=== PATIENT | male | born 1960 | race American Indian/Alaskan Native ===

== ENCOUNTER 2018-12-14 13:55 | Emergency (ER) | payer OTHER ==
[~2018-12-14] VITALS: Ht 172.7 cm; Wt 52.2 kg
[~2018-12-14 13:55] MED LIST: ALBU.083IS IH; ASPI325EC PO; ASPI81CH PO; AZIT500 PO; Acetaminophen325 M1 PO; Ativan1 MG PO; Augmentin 875-1 EACH PO; BUDE10.22 INH; CARV3.125 PO; CLOP75 PO; CODBUTACEC; FLUSAL2505 IH; GUAI600T33 PO; HYDACE10B; Imitrex100 MG PO; LEVFLO500 PO; LEVO750 PO; LORA.5 PO; LORA2 PO; LOSA25 PO; Mucinex600 MG PO; OXYACE5T PO; OXYC10TA19 PO; OXYC15ER PO; OXYC30 PO; OXYCODONE HCL E30 MG PO; PARO12.5; PARO12.5 PO; PRAVASTATIN SOD10 MG PO; PRED10 PO; PRED20 PO; PROM25 PO; Prednisone20 MG PO; ROFL500T PO; Symbicort 80-10.2 GM INH; TIOT18 IH; TIOT18 INH; TIZA4; TORSE20 PO; TRAM50; TRAZ100 PO; TRAZ50 PO; Ventolin Soln3 ML INH; ZYDONE
[2018-12-14] MEDS ORDERED: BUDE6HFA INH (14:09)
[2018-12-14] MEDS ORDERED: PROM25 PO (14:09)
[2018-12-14] MEDS ORDERED: Imitrex100 MG PO (14:09)
[2018-12-14 14:49] LABS: BASOPHILS ABSOLUTE AUTO 0.11 K/mm3 (0.00-0.23); BASOPHILS PERCENT AUTO 2 % (0-2); EOSINOPHILS ABSOLUTE AUTO 0.08 K/mm3 (0.00-0.68); EOSINOPHILS PERCENT AUTO 1 % (0-6); Hematocrit 39.3 % (37.0-53.0); IMMATURE GRAN ABSOLUTE AUTO 0.01 K/mm3 (0.00-0.10); IMMATURE GRAN PERCENT AUTO 0 % (0-1); LYMPHOCYTES ABSOLUTE AUTO 1.61 K/mm3 (0.84-5.20); LYMPHOCYTES PERCENT AUTO 22 % (21-46); MONOCYTES ABSOLUTE AUTO 0.68 K/mm3 (0.16-1.47); MONOCYTES PERCENT AUTO 9 % (4-13); Mean Corpuscular HGB Conc 33.1 g/dL (31.5-36.5); Mean Corpuscular Volume 94 fL (80-100); Mean Platelet Volume 11.2 fL (9.1-12.4); NEUTROPHILS ABSOLUTE AUTO 4.87 K/mm3 (1.96-9.15); NEUTROPHILS PERCENT AUTO 66 % (41-73); Platelet Count 182 K/mm3 (150-400); RDW Coefficient Variation 14.6 % (11.7-14.2); RDW Standard Deviation 50.9 fL (35.1-46.3); Red Blood Cell Count 4.19 M/mm3 (4.30-5.90); White Blood Cell Count 7.36 K/mm3 (4.00-11.30)
[2018-12-14 15:05] LABS: Alanine Aminotransfer (ALT/SGP 37 U/L (12-78); Albumin, Blood 3.3 g/dL (3.4-5.0); Albumin/Globulin Ratio 0.9 (0.8-1.8); Alk Phos 56 U/L (50-136); Anion Gap 4 mmol/L (6-16); Aspartate Aminotrans (AST/SGOT 47 U/L (12-37); Bilirubin, Total 0.7 mg/dL (0.1-1.0); Blood Urea Nitrogen 9 mg/dL (8-24); Bun/Creatinine Ratio 11.8 (12.0-20.0); CO2, Blood 34 mmol/L (21-32); Calcium, Blood 8.5 mg/dL (8.5-10.1); Chloride, Blood 103 mmol/L (98-108); Creatinine, Blood 0.77 mg/dL (0.60-1.20); Globulin, Blood 3.8 g/dL (2.2-4.0); Glomerular Filtration Rate >60 (60-); Glucose, Blood 89 mg/dL (70-99); Potassium, Blood 3.7 mmol/L (3.5-5.5); Sodium, Blood 141 mmol/L (136-145); Total Protein, Blood 7.1 g/dL (6.4-8.2); Troponin I <0.015 ng/mL (0.000-0.040)
== END 2018-12-14 16:16 | disposition home or self-care (01) ==
LOC: ER 13:55
PROVIDERS: Emergency Medicine
DX: R10.12 Left upper quadrant pain (principal); Z88.1 Allergy status to other antibiotic agents; Z79.899 Other long term (current) drug therapy; Z79.891 Long term (current) use of opiate analgesic; Z79.82 Long term (current) use of aspirin; J44.9 Chronic obstructive pulmonary disease, unspecified; I50.9 Heart failure, unspecified; Z87.891 Personal history of nicotine dependence
CPT/HCPCS: 36415; 74176; 80053; 83690; 83880; 84484; 85025; 93005; 93010; 99284-25

== ENCOUNTER 2019-04-10 10:16 | Inpatient (IN) | payer OTHER ==
[~2019-04-10] VITALS: Ht 172.7 cm; Wt 51.0 kg
[~2019-04-10 10:16] MED LIST changes: -ASPI81CH PO; +Aspirin EC81 MG PO; +BUDE6HFA INH
[2019-04-10 10:43] LABS: BASOPHILS PERCENT AUTO 0 % (0-2); EOSINOPHILS ABSOLUTE AUTO 0.01 K/mm3 (0.00-0.68); EOSINOPHILS PERCENT AUTO 0 % (0-6); Hemoglobin 13.4 g/dL (13.5-17.5); IMMATURE GRAN ABSOLUTE AUTO 0.18 K/mm3 (0.00-0.10); IMMATURE GRAN PERCENT AUTO 1 % (0-1); LYMPHOCYTES PERCENT AUTO 4 % (21-46); MONOCYTES ABSOLUTE AUTO 1.36 K/mm3 (0.16-1.47); MONOCYTES PERCENT AUTO 6 % (4-13); Mean Corpuscular HGB 31.2 pg (26.0-34.0); Mean Corpuscular HGB Conc 34.4 g/dL (31.5-36.5); Mean Corpuscular Volume 91 fL (80-100); Mean Platelet Volume 10.2 fL (9.1-12.4); NEUTROPHILS ABSOLUTE AUTO 20.54 K/mm3 (1.96-9.15); NEUTROPHILS PERCENT AUTO 89 % (41-73); Platelet Count 159 K/mm3 (150-400); RDW Standard Deviation 46.9 fL (35.1-46.3); Red Blood Cell Count 4.29 M/mm3 (4.30-5.90); White Blood Cell Count 22.99 K/mm3 (4.00-11.30)
[2019-04-10 11:08] LABS: Alanine Aminotransfer (ALT/SGP 43 U/L (12-78); Albumin, Blood 3.5 g/dL (3.4-5.0); Albumin/Globulin Ratio 0.9 (0.8-1.8); Alk Phos 63 U/L (50-136); Anion Gap 7 mmol/L (6-16); Aspartate Aminotrans (AST/SGOT 57 U/L (12-37); Blood Urea Nitrogen 10 mg/dL (8-24); Bun/Creatinine Ratio 12.7 (12.0-20.0); CO2, Blood 28 mmol/L (21-32); Calcium, Blood 8.3 mg/dL (8.5-10.1); Chloride, Blood 102 mmol/L (98-108); Creatinine, Blood 0.79 mg/dL (0.60-1.20); Globulin, Blood 3.8 g/dL (2.2-4.0); Glomerular Filtration Rate >60 (60-); Glucose, Blood 136 mg/dL (70-99); Potassium, Blood 3.4 mmol/L (3.5-5.5); Sodium, Blood 137 mmol/L (136-145); Total Protein, Blood 7.3 g/dL (6.4-8.2); Troponin I 0.036 ng/mL (0.000-0.040)
[2019-04-10] MEDS ORDERED: BUDE6HFA INH ×2 (12:33→13:30)
[2019-04-10] MEDS ORDERED: SERT25 PO ×2 (12:34→13:28)
[2019-04-10] MEDS ORDERED: TRAZ150T57 PO ×2 (12:34→13:38)
[2019-04-10] MEDS ORDERED: OXYC30 PO ×2 (12:35→12:47)
[2019-04-10] MEDS ORDERED: ALBU3IS INH (12:49)
[2019-04-10] MEDS ORDERED: PROM25 PO (13:27)
[2019-04-10] MEDS ORDERED: COMBIVENT RESPIM4 GM INH (13:30)
[2019-04-10] MEDS ORDERED: TIOT18 INH (13:31)
[2019-04-10] MEDS ORDERED: LORA.5 PO (13:31)
[2019-04-10] MEDS ORDERED: OXYC30ER PO (13:32)
[2019-04-10] MEDS ORDERED: PROAIR RESPICL90 MCG INH (13:33)
[2019-04-10] MEDS ORDERED: Imitrex100 MG PO (13:38)
--- NOTE | 2019-04-10 18:13 | NUR ---
ADMIT NOTE/SHIFT SUMMARY RECEIVED REPROT FORM ROQUE NOWAK RN IN ED. PT TO ROOM AT 1410. SBA TRANSFERED TO BED. DAUGHTER AT BEDSIDE. DAUGHTER REPORTS THAT PT HAS HAD INCREASED SOB, WITH NO RELEIF FROM RESCUE INHALER, THAT THE PATIETN TOOK LORAZEPAM LAST NIGHT AND THIS AM AND POSSIBLE "DOUBLED UP". PT/FAMILY ORIENTED TO UNIT &CALL LIGHT. EDUCATED ON FALL RISK AND USE OF CALL LIGHT. PT REPOSNDS TO VERBAL STIMULI, WAKES UP ENOUGH TO ANSWER QUESTIONS AND QUICKLY FALLS BACK ALSEEP T/O SHIFT. PT DENIES PAIN, HAS HX OF DEGENERATIVE DISK DISEASE AND PER DAUGHTER TAKES "PAIN MEDS" AT HOME. PT DENIES SOB UPON ADMISSION, SPO2 >94% ON 3L O2 VIA NC, WHICH IS HOME DOSE. BREATHING EVEN AND UNLABORED. PT RECEIVING IV ANTIBIOTICS. PT RECEIVED PO LIQUID POTASSIUM. VSS. NO OTHER ACUTE CHANGES NOTED DURING SHIFT. WILL CONTINUE TO MONITOR. UNTIL REPORT GIVEN TO ONCOMING RN.
[2019-04-10 18:28] LABS: Adenovirus Not Detected (NOT DETECT); Bordetella pertussis Not Detected (NOT DETECT); Chlamydophila pneumoniae Not Detected (NOT DETECT); Coronavirus 229E Not Detected (NOT DETECT); Coronavirus HKU1 Not Detected (NOT DETECT); Coronavirus NL63 Not Detected (NOT DETECT); Coronavirus OC43 Not Detected (NOT DETECT); Human Metapneumovirus Not Detected (NOT DETECT); Human Rhinovirus/Enterovirus Not Detected (NOT DETECT); Influenza A Not Detected (NOT DETECT); Influenza A/2009-H1 Not Detected (NOT DETECT); Influenza A/H1 Not Detected (NOT DETECT); Influenza A/H3 Not Detected (NOT DETECT); Influenza B Not Detected (NOT DETECT); Mycoplasma pneumoniae Not Detected (NOT DETECT); Parainfluenza Virus 1 Not Detected (NOT DETECT); Parainfluenza Virus 2 Not Detected (NOT DETECT); Parainfluenza Virus 3 Not Detected (NOT DETECT); Parainfluenza Virus 4 Not Detected (NOT DETECT); Respiratory Syncytial Virus Not Detected (NOT DETECT)
[2019-04-10 21:21] LABS: U Amphetamine Screen Not Detected; U Barbituate Screen Not Detected; U Benzodiazapine Screen DETECTED; U Buprenorphine Screen Not Detected; U Cannabinoids Screen DETECTED; U Cocaine Screen Not Detected; U Methadone Screen Not Detected; U Methamphetamine Screen Not Detected; U Opiates Screen Not Detected; U Oxycodone Screen DETECTED; U Phencyclidine Screen Not Detected; U Propoxyphene Screen Not Detected
--- NOTE | 2019-04-11 03:02 | NUR ---
PULLED IV AT APPROX 2020 SUPERVISED PT WALK TO B/R TO VOID, PT INADVERTENTLY PULLED OUT HIS IV FROM LFA. PRESSURE BANDAGE APPLIED (GAUZE AND COBAN) TO STOP BLEEDING. PT REPORTS NO PAIN, NO DIZZINESS. AT APPROX 2349 NEW IV 18 GA PLACED RT FOREARM ONE ATTEMPT, PT TOLERATED WELL. PATENT AND INFUSING BY 001
[2019-04-11 03:46] LABS: BASOPHILS ABSOLUTE AUTO 0.05 K/mm3 (0.00-0.23); BASOPHILS PERCENT AUTO 0 % (0-2); EOSINOPHILS PERCENT AUTO 0 % (0-6); Hematocrit 35.4 % (37.0-53.0); Hemoglobin 12.2 g/dL (13.5-17.5); IMMATURE GRAN ABSOLUTE AUTO 0.57 K/mm3 (0.00-0.10); IMMATURE GRAN PERCENT AUTO 3 % (0-1); LYMPHOCYTES ABSOLUTE AUTO 1.43 K/mm3 (0.84-5.20); LYMPHOCYTES PERCENT AUTO 6 % (21-46); MONOCYTES ABSOLUTE AUTO 1.57 K/mm3 (0.16-1.47); MONOCYTES PERCENT AUTO 7 % (4-13); Mean Corpuscular HGB Conc 34.5 g/dL (31.5-36.5); Mean Corpuscular Volume 90 fL (80-100); NEUTROPHILS ABSOLUTE AUTO 18.83 K/mm3 (1.96-9.15); NEUTROPHILS PERCENT AUTO 84 % (41-73); Platelet Count 130 K/mm3 (150-400); Red Blood Cell Count 3.93 M/mm3 (4.30-5.90); White Blood Cell Count 22.45 K/mm3 (4.00-11.30)
[2019-04-11 04:03] LABS: Alanine Aminotransfer (ALT/SGP 32 U/L (12-78); Albumin, Blood 2.8 g/dL (3.4-5.0); Albumin/Globulin Ratio 0.8 (0.8-1.8); Alk Phos 44 U/L (50-136); Anion Gap 3 mmol/L (6-16); Aspartate Aminotrans (AST/SGOT 52 U/L (12-37); Bilirubin, Total 0.6 mg/dL (0.1-1.0); Blood Urea Nitrogen 16 mg/dL (8-24); Bun/Creatinine Ratio 20.7 (12.0-20.0); CO2, Blood 29 mmol/L (21-32); Calcium, Blood 8.1 mg/dL (8.5-10.1); Chloride, Blood 105 mmol/L (98-108); Creatinine, Blood 0.77 mg/dL (0.60-1.20); Globulin, Blood 3.4 g/dL (2.2-4.0); Glomerular Filtration Rate >60 (60-); Glucose, Blood 107 mg/dL (70-99); Potassium, Blood 3.4 mmol/L (3.5-5.5); Sodium, Blood 137 mmol/L (136-145); Total Protein, Blood 6.2 g/dL (6.4-8.2)
--- NOTE | 2019-04-11 06:22 | NUR ---
SHIFT SUMMARY ASSUMED CARE OF PT AT 1900, PT SOMNOLENT IN BED AROUSABLE BY VOICE. TEMP NEAR 100 RESOLVED WITHIN 2 HOURS. REPORT FROM FAMILY IN ROOM THAT PT WAS OVERMEDICATED W/ ATIVAN D/T AIR ANXIETY AND SO BECAME OVERLY LETHARGIC. PT BECAME MORE AND MORE ALERT AND AWARE SHIFT PROGRESSED, ALLOWING FOR DC OF NPO ORDER AND BED ALARM BY MIDNIGHT. OBTAINED ORDER FOR OXYCODONE 5MG Q4 PRN TO APPROXIMATE PT'S HOME MED SCHED, PT TOLERATING WELL THIS SLIGHT REDUCTION IN DOSE. PT IS ALERT AND AWARE, COOPERATIVE, AMBULATES WELL, TOILETS AND REPOSITIONS SELF APPROPRIATELY. MAINTAINED STABLE VS T/O SHIFT. WILL CONTINUE TO MONITOR UNTIL PASSING CARE AND REPORT TO ONCOMING SHIFT. BED LOW & LOCKED, CALL LIGHT W/IN REACH.
--- NOTE | 2019-04-11 16:27 | NUR ---
SHIFT SUMMARY-TRANSFER NOTE REPORT GIVEN TO COURT LYNN IN MEDICAL FLOOR, PT TRANSFERED TO ROOM 341 AT 1615. PT A&Ox4, CALM AND COOPERTAIVE WITH CARE. PT RESTING IN BED. UP IND IN ROOM AND WALKING WITH FAMILY T/O HALLS. PT REPORTS CHRONIC PAIN IN NECK, MEDICATED WITH OXYCODONE 5MG x2 DURING SHIFT, PT STATES THE MEDCIATIONS KEEP HIS AT 4-5/10. PT DENIES SOB, SPO2 >94% ON 3L O2 VIA NC, WHICH IS PATIENT HOME DOSE AND WEARS 31/01. BREATHING EVEN AND UNLABORED. PT DENIES NAUSEA DURING SHIFT. PT RECEIVING IV ANTIBIOTICS AND PO STEROIS. BREATHING TREATMENTS PER RT. VSS. NO OTHER ACUTE CHANGES NOTED DURING SHIFT.
--- NOTE | 2019-04-11 16:38 | NUR ---
ARRIVAL TO UNIT: PATIENT ARRIVED TO UNIT VIA WHEELCHAIR. PATIENT ALERT AND ORIENTED. PATIENT DENIES SOB OR RESPIRATORY DISTRESS. PATIENT RESTING COMFORTABLY AT BEDSIDE. BREATHING APPEARS EVEN AND UNLABORED. DISCUSSED NUTRITIONAL STATUS WITH THE PATIENT. PATIENT AGREED THAT AN ENSURE SOUNDED GOOD. PROVIDED WITH ENSURE AND WATER. ORIENTED TO ROOM AND CALL LIGHT. PATIENT DENIES OTHER NEEDS AT THIS TIME.
--- NOTE | 2019-04-11 18:47 | NUR ---
END OF SHIFT SUMMARY: PATIENT TRANSFERED TO UNIT THIS AFTERNOON. PATIENT DENIED SOB OR RESPIRATORY DISTRESS THIS EVENING. PATIENT REPORTED THAT OVERALL HIS BREATHING IS IMPROVED. PATIENT INDEPENDENT IN ROOM. PATIENT STEADY ON FEET. NO INCREASED SOB WITH ACTIVITY. BREATHING IS EVEN AND UNLABORED. PATIENT WILL POTENTIALLY DISCHARGE TOMORROW.
[2019-04-12 05:32] LABS: BASOPHILS ABSOLUTE AUTO 0.02 K/mm3 (0.00-0.23); BASOPHILS PERCENT AUTO 0 % (0-2); EOSINOPHILS ABSOLUTE AUTO 0.01 K/mm3 (0.00-0.68); EOSINOPHILS PERCENT AUTO 0 % (0-6); Hematocrit 33.6 % (37.0-53.0); Hemoglobin 11.4 g/dL (13.5-17.5); IMMATURE GRAN ABSOLUTE AUTO 0.08 K/mm3 (0.00-0.10); IMMATURE GRAN PERCENT AUTO 1 % (0-1); LYMPHOCYTES ABSOLUTE AUTO 1.54 K/mm3 (0.84-5.20); LYMPHOCYTES PERCENT AUTO 12 % (21-46); MONOCYTES ABSOLUTE AUTO 0.98 K/mm3 (0.16-1.47); MONOCYTES PERCENT AUTO 8 % (4-13); Mean Corpuscular HGB 31.2 pg (26.0-34.0); Mean Corpuscular HGB Conc 33.9 g/dL (31.5-36.5); Mean Corpuscular Volume 92 fL (80-100); Mean Platelet Volume 11.2 fL (9.1-12.4); NEUTROPHILS ABSOLUTE AUTO 10.03 K/mm3 (1.96-9.15); NEUTROPHILS PERCENT AUTO 79 % (41-73); Platelet Count 136 K/mm3 (150-400); RDW Coefficient Variation 14.1 % (11.7-14.2); Red Blood Cell Count 3.65 M/mm3 (4.30-5.90); White Blood Cell Count 12.66 K/mm3 (4.00-11.30)
[2019-04-12 06:04] LABS: Albumin, Blood 2.5 g/dL (3.4-5.0); Anion Gap 3 mmol/L (6-16); Blood Urea Nitrogen 18 mg/dL (8-24); Bun/Creatinine Ratio 24.3 (12.0-20.0); CO2, Blood 29 mmol/L (21-32); Calcium, Blood 8.3 mg/dL (8.5-10.1); Chloride, Blood 109 mmol/L (98-108); Creatinine, Blood 0.74 mg/dL (0.60-1.20); Glomerular Filtration Rate >60 (60-); Glucose, Blood 94 mg/dL (70-99); Phosphorus, Blood 2.3 mg/dL (2.5-4.9); Potassium, Blood 3.5 mmol/L (3.5-5.5); Sodium, Blood 141 mmol/L (136-145)
--- NOTE | 2019-04-12 06:42 | NUR ---
SHIFT SUMMARY NO ACUTE EVENTS OVERNIGHT. PATIENT SLEPT THROUGHOUT SHIFT WITH NO ISSUE/CONCERN. PATIENT UP AD ADELINA IN ROOM. WILL CONTINUE TO MONITOR AND REPORT TO ON COMING RN.
[2019-04-12] MEDS ORDERED: GUAI600T33 PO (11:41)
[2019-04-12] MEDS ORDERED: Prednisone10 MG PO (11:44)
[2019-04-12] MEDS ORDERED: Vsl#3 Capsule1 EACH PO (11:45)
[2019-04-12] MEDS ORDERED: AZIT500 PO (11:45)
[2019-04-12] MEDS ORDERED: CEFU500T30 PO (11:48)
[2019-04-12] MEDS ORDERED: METR500 PO (11:51)
--- NOTE | 2019-04-12 14:07 | NUR ---
discharge PT STATE FEELING IMPROVED THIS AM, STATE NO SOB. O2 @ 3L HOME DOSE. DR RICKS IN TO SEE HIM, STATE OK FOR D/C HOME TODAY AFTER IV [facility] INFUSION. IV INFILTRATED MIDWAY THRU INFUSION, DR CASTANON ORAL SUPPLEMENT, STATE OK TO D/C HOME. D/C INSTRUCT PROVIDED. PT STATE FAMILY EN-ROUTE FOR TRANSPORTATION HOME. [facility] WILL DELIVER PORTABLE O2 TO ROOM PRIOR TO D/C. PT IS PLEASANT, APPRECIATIVE. W/C ESCORT FROM HOSP PROVIDED.
== END 2019-04-12 14:40 | disposition home or self-care (01) | DRG 871 ==
LOC: ER 10:16 → PCU 14:10 → MEDS 04-11 16:25 → ENPENDDIS 04-12 10:38 → MEDS 04-12 14:40
PROVIDERS: Emergency Medicine; Internal Medicine; Nurse Practitioner Acute Care; ADMIT Hospitalist
DX: A41.9 Sepsis, unspecified organism (principal); J69.0 Pneumonitis due to inhalation of food and vomit; G92 Toxic encephalopathy; J44.1 Chronic obstructive pulmonary disease with (acute) exacerbation; J96.11 Chronic respiratory failure with hypoxia; I50.42 Chronic combined systolic (congestive) and diastolic (congestive) heart failure; F11.20 Opioid dependence, uncomplicated; R65.20 Severe sepsis without septic shock; G89.4 Chronic pain syndrome; F41.1 Generalized anxiety disorder; E83.39 Other disorders of phosphorus metabolism; Z99.81 Dependence on supplemental oxygen; Z87.891 Personal history of nicotine dependence; I25.2 Old myocardial infarction
CPT/HCPCS: 0099U; 36415; 71046; 80053; 80069; 83605; 83735; 83880; 84145; 84484; 85025; 87040; 93005; 93010; 94640; 94760; 96365; 96367; 96375; 99285-25; A9270; J0456; J0696; J1650; J2930; J7030; J7050; J7060; J7512

== ENCOUNTER 2019-09-09 13:31 | Inpatient (IN) | payer OTHER ==
[~2019-09-09] VITALS: Ht 172.7 cm; Wt 46.7 kg
[~2019-09-09 13:31] MED LIST changes: +ALBU3IS INH; +CEFU500T30 PO; +COMBIVENT RESPIM4 GM INH; +METR500 PO; +PROAIR RESPICL90 MCG INH; +Prednisone10 MG PO; +SERT25 PO; +TRAZ150T57 PO; +Vsl#3 Capsule1 EACH PO
[2019-09-09 13:57] LABS: BASOPHILS ABSOLUTE AUTO 0.02 K/mm3 (0.00-0.23); BASOPHILS PERCENT AUTO 0 % (0-2); EOSINOPHILS ABSOLUTE AUTO 0.04 K/mm3 (0.00-0.68); EOSINOPHILS PERCENT AUTO 1 % (0-6); Hematocrit 41.4 % (37.0-53.0); Hemoglobin 13.7 g/dL (13.5-17.5); Mean Corpuscular HGB 29.8 pg (26.0-34.0); Mean Corpuscular HGB Conc 33.1 g/dL (31.5-36.5); Mean Corpuscular Volume 90 fL (80-100); Mean Platelet Volume 10.2 fL (9.1-12.4); Platelet Count 208 K/mm3 (150-400); RDW Coefficient Variation 14.6 % (11.7-14.2); RDW Standard Deviation 48.5 fL (35.1-46.3); White Blood Cell Count 8.04 K/mm3 (4.00-11.30)
[2019-09-09 14:04] LABS: IMMATURE GRAN ABSOLUTE AUTO 0.03 K/mm3 (0.00-0.10); IMMATURE GRAN PERCENT AUTO 0 % (0-1); LYMPHOCYTES ABSOLUTE AUTO 1.67 K/mm3 (0.84-5.20); LYMPHOCYTES PERCENT AUTO 21 % (21-46); MONOCYTES ABSOLUTE AUTO 1.23 K/mm3 (0.16-1.47); MONOCYTES PERCENT AUTO 15 % (4-13); NEUTROPHILS ABSOLUTE AUTO 5.05 K/mm3 (1.96-9.15); NEUTROPHILS PERCENT AUTO 63 % (41-73)
[2019-09-09 14:10] LABS: Influenza A Negative (NEGATIVE); Influenza B Negative (NEGATIVE)
[2019-09-09 14:12] LABS: Alanine Aminotransfer (ALT/SGP 26 U/L (12-78); Albumin, Blood 2.6 g/dL (3.4-5.0); Albumin/Globulin Ratio 0.6 (0.8-1.8); Alk Phos 60 U/L (50-136); Anion Gap 6 mmol/L (6-16); Aspartate Aminotrans (AST/SGOT 57 U/L (12-37); Bilirubin, Total 0.7 mg/dL (0.1-1.0); Blood Urea Nitrogen 16 mg/dL (8-24); Bun/Creatinine Ratio 23.8 (12.0-20.0); CO2, Blood 32 mmol/L (21-32); Calcium, Blood 8.2 mg/dL (8.5-10.1); Chloride, Blood 96 mmol/L (98-108); Creatinine, Blood 0.67 mg/dL (0.60-1.20); Globulin, Blood 4.3 g/dL (2.2-4.0); Glomerular Filtration Rate >60 (60-); Glucose, Blood 99 mg/dL (70-99); Potassium, Blood 3.7 mmol/L (3.5-5.5); Sodium, Blood 134 mmol/L (136-145); Total Protein, Blood 6.9 g/dL (6.4-8.2)
[2019-09-09 15:04] LABS: Magnesium, Blood 1.6 mg/dL (1.6-2.4); Phosphorus, Blood 2.2 mg/dL (2.5-4.9)
[2019-09-09] MEDS ORDERED: OXYC30 PO (16:02)
[2019-09-09] MEDS ORDERED: LORAZEPAM0.5 MG PO (16:03)
--- NOTE | 2019-09-10 05:18 | NUR ---
SHIFT SUMMARY: VSS. AFEB. 02 91% ON 3L VIA NC. NO SOB. EXPIRATORY WHEEZE AUSCULTED ON L UPPER LOBE. FINE INSP CRACKLES AUSULTATED ON R MID LOBE. PT T/F FROM STRETCHER TO BED W/ 1 ASSIST, WEAK AND A LITTLE UNSTEADY ON FEET. PT DENIES CHEST PAIN. HAS SLEPT THROUGH MOST OF THE NIGHT. DENIES N/V, REFUSING ALL PO FOODS BROUGT IN BY SPOUSE. BED LOW, CALL BUTTON EXPLAINED AND PLACED IN REACH. WILL CONT TO MONITOR.
[2019-09-10 05:52] LABS: Anion Gap 4 mmol/L (6-16); Blood Urea Nitrogen 15 mg/dL (8-24); Bun/Creatinine Ratio 23.3 (12.0-20.0); CO2, Blood 34 mmol/L (21-32); Calcium, Blood 7.9 mg/dL (8.5-10.1); Chloride, Blood 99 mmol/L (98-108); Creatinine, Blood 0.65 mg/dL (0.60-1.20); Glomerular Filtration Rate >60 (60-); Glucose, Blood 147 mg/dL (70-99); Magnesium, Blood 2.2 mg/dL (1.6-2.4); Phosphorus, Blood 3.4 mg/dL (2.5-4.9); Potassium, Blood 3.7 mmol/L (3.5-5.5); Sodium, Blood 137 mmol/L (136-145); Troponin I 0.028 ng/mL (0.000-0.040)
[2019-09-10 08:51] LABS: Adenovirus Not Detected (NOT DETECT); Bordetella pertussis Not Detected (NOT DETECT); Chlamydophila pneumoniae Not Detected (NOT DETECT); Coronavirus 229E Not Detected (NOT DETECT); Coronavirus HKU1 Not Detected (NOT DETECT); Coronavirus NL63 Not Detected (NOT DETECT); Coronavirus OC43 Not Detected (NOT DETECT); Human Metapneumovirus Not Detected (NOT DETECT); Human Rhinovirus/Enterovirus Not Detected (NOT DETECT); Influenza A Not Detected (NOT DETECT); Influenza A/2009-H1 Not Detected (NOT DETECT); Influenza A/H1 Not Detected (NOT DETECT); Influenza A/H3 Not Detected (NOT DETECT); Influenza B Not Detected (NOT DETECT); Mycoplasma pneumoniae Not Detected (NOT DETECT); Parainfluenza Virus 1 Not Detected (NOT DETECT); Parainfluenza Virus 2 Not Detected (NOT DETECT); Parainfluenza Virus 3 Not Detected (NOT DETECT); Parainfluenza Virus 4 Not Detected (NOT DETECT); Respiratory Syncytial Virus Not Detected (NOT DETECT)
--- NOTE | 2019-09-10 09:40 | NUR ---
Echocardiogram completed.
--- NOTE | 2019-09-10 17:41 | NUR ---
SHIFT SUMMARY PT STARTED ON IV FLUIDS THIS AM. 125ML/HR NS. TOLERATING WELL. PT EDUCATED TO USE URINAL FOR ACCURATE OUTPUT. PT STATES HE UNDERSTANDS. PT SATING WELL ON 3L O2 VIA NC. OTHER VITALS STABLE. PT AMBULATED HALLWAY WITH PT WELL. PT CONTINUES TO HAVE POOR APPETITEBUT HAS SLIGHTLY INCREASED THROUGHOUT SHIFT. NO OTHER CHANGES IN ASSESSMENT AT THIS TIME.
--- NOTE | 2019-09-11 04:37 | NUR ---
INSTRUCTOR INDUSTRIAL DESIGN SUMMARY NO ACUTE CHANGES THIS SHIFT. PT AAOX4 AND PLEASANT. CALLS APPROPRIATELY FOR ASSISTANCE. PT NOT RECIEVING ADEQUATE PAIN MANAGEMENT AT START OF SHIFT WITH ORDER FOR OXYCODONE 15 MG DAILY. PT ALSO HAD ORDER FOR 30 MG BID BUT PT DID NOT WANT TO TAKE THAT HIGH OF A DOSE AT ONCE BECAUSE "IT WIPES ME OUT FOR AWHILE". NOTIFIED HOSPITALIST [facility] AND REQUESTED OXYCODONE ORDER BE CHANGED TO PT'S HOME DOSE OF 15 MG Q8H. PT HAPPY WITH THIS NEW ORDER. VSS, WILL CONTINUE TO MONITOR.
[2019-09-11 05:40] LABS: Anion Gap 3 mmol/L (6-16); Blood Urea Nitrogen 14 mg/dL (8-24); Bun/Creatinine Ratio 24.4 (12.0-20.0); CO2, Blood 33 mmol/L (21-32); Calcium, Blood 7.5 mg/dL (8.5-10.1); Chloride, Blood 105 mmol/L (98-108); Creatinine, Blood 0.57 mg/dL (0.60-1.20); Glomerular Filtration Rate >60 (60-); Glucose, Blood 148 mg/dL (70-99); Potassium, Blood 3.6 mmol/L (3.5-5.5); Sodium, Blood 141 mmol/L (136-145)
--- NOTE | 2019-09-11 16:12 | NUR ---
SHIFT SUMMARY PT MEDICATED FOR ANXIETY ONCE THIS SHIFT. SEE EMAR FOR PAIN MED ADMINISTRATION. PT AMBULATED HALLWAY WITH PHYSICAL THERAPY. PT CONTINUES WITH A POOR APPETITE, EATING VERY SMALL PERCENTAGES FOR MEALS. NO OTHER CHANGES IN ASSESSMENT AT THIS TIME. VSS. WILL CONTINUE TO MONITOR UNTIL TURNOVER IS COMPLETE.
--- NOTE | 2019-09-12 03:34 | NUR ---
SHIFT SUMMARY ASSUMED CARE OF PT AT 1900. PT IS A/O X4, DENIES N/T IN EXTREMITIES. PT IS IN ROOM WITH PT. LUNG SOUNDS WHEEZY WITH SOME CRACKLES AT THE BASES, PT ON 3L NC BASLINE, HEART SOUNDS REGULAR, OT STATES HE HAS NO OTHER COMPLANTS OTHER THAN HAVING A POOR APPITITE. PT SLEPT T/O THE NIGHT. CALL LIGHT IN REACH, BED IN LOWEST POSTION, WILL CONTINUE TO MONITOR UNTIL DAYSHIFT NURSE ARRIVES.
[2019-09-12] MEDS ORDERED: PRED20 PO (13:40)
[2019-09-12] MEDS ORDERED: AZIT250 PO (13:41)
[2019-09-12] MEDS ORDERED: CEFU500T30 PO (13:42)
--- NOTE | 2019-09-12 14:36 | NUR ---
PT DISCHARGED PT DISCHARGED AT 1435. PT IN STABLE CONDITION. NO CHANGES IN ASSESSMENT AT THIS TIME. PT & EDUCATED ON DC INSTRUCTIONS AND DENIED FURTHER NEED FOR INSTRUCTIONS. PT WHEELED OUT BY AIDE. DRIVEN HOME BY .
== END 2019-09-12 14:36 | disposition home health service (06) | DRG 193 ==
LOC: ER 13:31 → MEDS 17:06
PROVIDERS: Emergency Medicine; Hospitalist; Physician Assistant; ADMIT Internal Medicine
DX: J18.9 Pneumonia, unspecified organism (principal); E43 Unspecified severe protein-calorie malnutrition; J96.21 Acute and chronic respiratory failure with hypoxia; J44.0 Chronic obstructive pulmonary disease with (acute) lower respiratory infection; I50.42 Chronic combined systolic (congestive) and diastolic (congestive) heart failure; R64 Cachexia; Z68.1 Body mass index [BMI] 19.9 or less, adult; J44.1 Chronic obstructive pulmonary disease with (acute) exacerbation; I25.2 Old myocardial infarction; I25.10 Atherosclerotic heart disease of native coronary artery without angina pectoris; E78.5 Hyperlipidemia, unspecified; Z87.891 Personal history of nicotine dependence; Z99.81 Dependence on supplemental oxygen; G89.4 Chronic pain syndrome; E83.39 Other disorders of phosphorus metabolism
CPT/HCPCS: 0099U; 36415; 71046; 80048; 80053; 82947; 83605; 83735; 83880; 84100; 84145; 84484; 85025; 87804; 93005; 93010; 93306; 94640; 94760; 96361; 96365; 96366; 96367; 96375; 97116; 97162; 97165; 97530; 99285-25; C9113; J0456; J0696; J1650; J2405; J2920; J2930; J3475; J7030; J7050; J7512

== ENCOUNTER 2021-06-29 05:01 | Inpatient (IN) | payer OTHER ==
[~2021-06-29] VITALS: Ht 180.3 cm; Wt 51.1 kg
[~2021-06-29 05:01] MED LIST changes: +AZIT250 PO; +LORAZEPAM0.5 MG PO
[2021-06-29 05:47] LABS: BASOPHILS ABSOLUTE AUTO 0.19 K/mm3 (0.00-0.23); BASOPHILS PERCENT AUTO 1 % (0-2); EOSINOPHILS ABSOLUTE AUTO 0.05 K/mm3 (0.00-0.68); EOSINOPHILS PERCENT AUTO 0 % (0-6); Hematocrit 27.7 % (37.0-53.0); Hemoglobin 7.9 g/dL (13.5-17.5); IMMATURE GRAN ABSOLUTE AUTO 0.06 K/mm3 (0.00-0.10); IMMATURE GRAN PERCENT AUTO 0 % (0-1); LYMPHOCYTES ABSOLUTE AUTO 3.59 K/mm3 (0.84-5.20); LYMPHOCYTES PERCENT AUTO 25 % (21-46); MONOCYTES ABSOLUTE AUTO 1.16 K/mm3 (0.16-1.47); MONOCYTES PERCENT AUTO 8 % (4-13); Mean Corpuscular HGB 21.6 pg (26.0-34.0); Mean Corpuscular HGB Conc 28.5 g/dL (31.5-36.5); Mean Corpuscular Volume 76 fL (80-100); Mean Platelet Volume 11.8 fL (9.1-12.4); NEUTROPHILS PERCENT AUTO 64 % (41-73); Platelet Count 316 K/mm3 (150-400); RDW Coefficient Variation 15.9 % (11.7-14.2); RDW Standard Deviation 43.7 fL (35.1-46.3); Red Blood Cell Count 3.66 M/mm3 (4.30-5.90); White Blood Cell Count 14.15 K/mm3 (4.00-11.30)
[2021-06-29 06:06] LABS: Alanine Aminotransfer (ALT/SGP 31 U/L (12-78); Albumin, Blood 2.9 g/dL (3.4-5.0); Albumin/Globulin Ratio 0.6 (0.8-1.8); Alk Phos 84 U/L (50-136); Anion Gap 5 mmol/L (6-16); Aspartate Aminotrans (AST/SGOT 45 U/L (12-37); Bilirubin, Total 0.3 mg/dL (0.1-1.0); Blood Urea Nitrogen 12 mg/dL (8-24); Bun/Creatinine Ratio 17.6 (12.0-20.0); CO2, Blood 37 mmol/L (21-32); Calcium, Blood 8.8 mg/dL (8.5-10.1); Chloride, Blood 98 mmol/L (98-108); Creatinine, Blood 0.68 mg/dL (0.60-1.20); Globulin, Blood 4.6 g/dL (2.2-4.0); Glomerular Filtration Rate >60 (60-); Glucose, Blood 160 mg/dL (70-99); Potassium, Blood 3.3 mmol/L (3.5-5.5); Sodium, Blood 140 mmol/L (136-145); Total Protein, Blood 7.5 g/dL (6.4-8.2); Troponin I 0.017 ng/mL (0.000-0.040)
[2021-06-29 06:44] LABS: Influenza A, PCR NEGATIVE (NEGATIVE); Influenza B, PCR NEGATIVE (NEGATIVE); Resp Syncytial Virus, PCR NEGATIVE (NEGATIVE); SARS-Cov-2 (COVID-19) PCR, MMC NEGATIVE (NEGATIVE)
[2021-06-29 06:58] LABS: PCO2 Arterial 42.9 mmHg (35-45); PO2 Arterial 370 mmHg (80-100); pH Blood Arterial 7.52 (7.35-7.45)
--- NOTE | 2021-06-29 11:09 | NUR ---
PATIENT TO ROOM 0825 PATIENT INTUBATED AND OPENING EYES WHEN TRANSFERRED TO THE BED, PROPOFOL STARTED. PATIENT ABLE TO NOD YES/NO AND FOLLOW COMMANDS. BECAME INCREASINGLY ANXIOUS AND AGITATED, PROPOFOL STARTED AND FENTANYL PUSH GIVEN FOR DISCOMFORT AND SEDATION. BILATERAL SOFT WRIST RESTRAINTS IN PLACE TO PROTECT LINES AND TUBES. GOSSMAN TO ROOM TO ASSESS PATIENT UPON ARRIVAL. 02 SATS 89-93% ON VENT, AC VC 12/400/7/40%. LUNGS CLEAR T/O, SLIGHTLY DIMINISHED IN BASES. HR SR @90s, WITH SOME PVCs. TITRATING LEVO FOR A MAP GREATER THAN 60. LITER BOLUS OF LR GIVEN. TO ROOM WHEN PATIENT ARRIVED, PROVIDED INFO FOR HISTORY. TURN Q2 HOURS. SEE SHIFT ASSESSMENT FOR MORE DETAIL.
[2021-06-29 11:47] LABS: Source, Urine Catheter
[2021-06-29 11:50] LABS: Appearance, Urine Clear (Clear); Blood, Urine 1+ (Neg); Color, Urine Yellow (P-Yellow); Glucose Qualitative, Urine 1+ (Neg); Ketones, Urine 1+ (Neg); Leukocyte Esterase, Urine 1+ (Neg); Nitrite, Urine Neg (Neg); Protein, Urine 3+ (Neg); Urobilinogen, Urine 2+ (Normal)
[2021-06-29 12:33] LABS: Bilirubin, Urine 1+ (Neg)
[2021-06-29 12:35] LABS: Amorphous Mod (0-Heavy); Bacteria Mod /hpf; Mucus Light (0-Heavy); Squamous Epithelial Cells Few /hpf (Few)
[2021-06-29 16:27] LABS: BASOPHILS ABSOLUTE AUTO 0.01 K/mm3 (0.00-0.23); BASOPHILS PERCENT AUTO 0 % (0-2); EOSINOPHILS PERCENT AUTO 0 % (0-6); Hematocrit 21.7 % (37.0-53.0); Hemoglobin 6.7 g/dL (13.5-17.5); IMMATURE GRAN ABSOLUTE AUTO 0.04 K/mm3 (0.00-0.10); IMMATURE GRAN PERCENT AUTO 0 % (0-1); LYMPHOCYTES PERCENT AUTO 6 % (21-46); MONOCYTES ABSOLUTE AUTO 0.35 K/mm3 (0.16-1.47); MONOCYTES PERCENT AUTO 3 % (4-13); Mean Corpuscular HGB 22.5 pg (26.0-34.0); Mean Corpuscular HGB Conc 30.9 g/dL (31.5-36.5); Mean Corpuscular Volume 73 fL (80-100); Mean Platelet Volume 10.7 fL (9.1-12.4); NEUTROPHILS ABSOLUTE AUTO 10.75 K/mm3 (1.96-9.15); NEUTROPHILS PERCENT AUTO 91 % (41-73); Platelet Count 263 K/mm3 (150-400); RDW Coefficient Variation 16.1 % (11.7-14.2); RDW Standard Deviation 42.4 fL (35.1-46.3); Red Blood Cell Count 2.98 M/mm3 (4.30-5.90); White Blood Cell Count 11.85 K/mm3 (4.00-11.30)
[2021-06-29 16:50] LABS: Anion Gap 6 mmol/L (6-16); Blood Urea Nitrogen 15 mg/dL (8-24); Bun/Creatinine Ratio 17.5 (12.0-20.0); CO2, Blood 34 mmol/L (21-32); Calcium, Blood 8.2 mg/dL (8.5-10.1); Chloride, Blood 99 mmol/L (98-108); Creatinine, Blood 0.86 mg/dL (0.60-1.20); Glomerular Filtration Rate >60 (60-); Glucose, Blood 170 mg/dL (70-99); Potassium, Blood 3.6 mmol/L (3.5-5.5); Sodium, Blood 139 mmol/L (136-145)
--- NOTE | 2021-06-29 18:11 | NUR ---
SHIFT SUMMARY PATIENT IS SEDATED ON PROPOFOL AND PRN FENTANYL, OPENS EYES TO TOUCH AND PAINFUL STIMULI. WHEN LESS SEDATED ABLE TO FOLLOW COMMAND AND NOD YES/NO TO QUESTION, DUE TO ANXIETY AND UNABLE TO TOLERATE VENT SEDATION INCREASED. 02 SATS 97% ON VENT AC VC 12/400/7/30%. LUNGS CLEAR TO DIMINISHED. HR SR IN THE 60s. PATIENT REMAINS ON LEVOPHED. GAN DRAINING YELLOW/CLEAR URINE TO GRAVITY, NO BM THIS SHIFT. TUBE FEED VITAL HP STARTED @1800, 20 MLS/HR WITH 30 MLS FLUSHES Q4. CALLED DR. WALLS WITH 1600 LABS, PATIENT HGB 6.7, ORDERS TO TRANSFUSE 1 UNIT PRBCs. TURNED Q2 HOURS. BILATERAL SOFT WRIST RESTRAINTS IN PLACE. IN ROOM DURING VISITING HOURS.
--- NOTE | 2021-06-29 19:16 | NUR ---
Assumed care. Report received from shaheen YUN. Pt in bed, sedated and ventilated via ETT. Vent settings: AC/VC 12/400/7/30%. OG tube in place, tube feed running at 20 ml/hr goal rate. Pt has L/femoral central line in place and IV access in R/hand. IV pump settings: Propofol 40 mcg/kg/min, Levophed 5 mcg/min, NS 75 ml/hr. SWB restraints in place. Henry catheter in place. No acute needs at this time, will continue to monitor.
[2021-06-30 04:12] LABS: BASOPHILS ABSOLUTE AUTO 0.02 K/mm3 (0.00-0.23); BASOPHILS PERCENT AUTO 0 % (0-2); EOSINOPHILS PERCENT AUTO 0 % (0-6); Hematocrit 25.7 % (37.0-53.0); IMMATURE GRAN ABSOLUTE AUTO 0.06 K/mm3 (0.00-0.10); IMMATURE GRAN PERCENT AUTO 1 % (0-1); LYMPHOCYTES ABSOLUTE AUTO 0.62 K/mm3 (0.84-5.20); LYMPHOCYTES PERCENT AUTO 5 % (21-46); MONOCYTES PERCENT AUTO 6 % (4-13); Mean Corpuscular HGB 23.1 pg (26.0-34.0); Mean Corpuscular HGB Conc 31.1 g/dL (31.5-36.5); Mean Corpuscular Volume 74 fL (80-100); Mean Platelet Volume 11.1 fL (9.1-12.4); NEUTROPHILS ABSOLUTE AUTO 10.64 K/mm3 (1.96-9.15); NEUTROPHILS PERCENT AUTO 88 % (41-73); Platelet Count 304 K/mm3 (150-400); RDW Coefficient Variation 16.2 % (11.7-14.2); RDW Standard Deviation 42.8 fL (35.1-46.3); Red Blood Cell Count 3.47 M/mm3 (4.30-5.90); White Blood Cell Count 12.04 K/mm3 (4.00-11.30)
[2021-06-30 04:32] LABS: Anion Gap 3 mmol/L (6-16); Blood Urea Nitrogen 20 mg/dL (8-24); CO2, Blood 36 mmol/L (21-32); Calcium, Blood 8.7 mg/dL (8.5-10.1); Chloride, Blood 98 mmol/L (98-108); Creatinine, Blood 0.83 mg/dL (0.60-1.20); Glomerular Filtration Rate >60 (60-); Glucose, Blood 161 mg/dL (70-99); Magnesium, Blood 1.6 mg/dL (1.6-2.4); Phosphorus, Blood 3.2 mg/dL (2.5-4.9); Potassium, Blood 3.5 mmol/L (3.5-5.5); Sodium, Blood 137 mmol/L (136-145)
[2021-06-30 04:32] LABS: PCO2 Arterial 54.3 mmHg (35-45); PO2 Arterial 69.2 mmHg (80-100); pH Blood Arterial 7.44 (7.35-7.45)
--- NOTE | 2021-06-30 06:33 | NUR ---
Shift summary. Pt continues in bed, sedated and ventilated via ETT. Vent settings AC/VC 12/400/6/30%. OG tube in place, TF running at goal rate 20 ml/hr. IV pump settings: Propofol 45 mcg/kg/min, Levophed 7 mcg/min, LR 75 ml/hr. SWB restraints in place. Henry catheter in place, 400 ml out this shift. See shift assessment for further details. Will continue to monitor and report off to dayshift RN.
--- NOTE | 2021-06-30 08:08 | NUR ---
ASSUMED PT CARE AT 0700. PT SEDATED ON PROPOFOL, WITHDRAWAL TO NOX STIM, GRIMACE TO ORAL CARE. LEVO TITRATED DOWN, GOAL MAPS GREATER THAN 65. VENT SETTINGS 12, 400, 6, 30%. PER NOC SHIFT REPORT PT VERY AGITATED AND ANXIOUS WITH SEDATION VACATION. RN WILL WAIT TO TITRATE DOWN SEDATION UNTIL MD PRESENT AND HAVE DISCUSSED POC FOR TODAY. TF AT GOAL RATE 20. FC INTACT. L FEM CL INTACT.
--- NOTE | 2021-06-30 09:27 | NUR ---
ASSUMED PT CARE AT 0700. PT A/OX4, EDWARDS. AIRVO ADJUSTED TO 50L 85%, PT TOLERATING WELL WITH SATS GREATER THAN 90%. PT ATE 40% OF BREAKFAST, ASSIST NEEDED. PLAN TO GET PT UP TO CHAIR SHORTLY VIA CEILING LIFT, CONTINUE THERAPIES.
[2021-06-30 16:18] LABS: Ferritin, Serum 13 ng/mL (26-388); Iron Serum 11 ug/dL (65-175); Percent Saturation 2.9 % (20.0-50.0); Total Iron Binding Capacity 382 ug/dL (250-450)
--- NOTE | 2021-06-30 18:12 | NUR ---
ATTEMPTED SEDATION VACATION WITH TITRATING PROPOFOL OFF WITH INITIAION OF PRECEDEX GTT. PROP OFF AND PRECEDEX AT 0.7; PT BECAME AGITATED AND RESTLESS, TACHYPNEIC, TACHYCARDIC, AND HYPERTENSIVE. ATIVAN 2MG IV AND FENT 50MCG GIVEN, MD WARD IN TO EVAL. PRECEDEX GTT SLOWLY INCREASED TO 1.4MCG OVER NEXT HOUR, PT REMAINS AGITATED, PROP RESTARTED. SBT ATTEMPTED, LASTED LESS THAN 30MIN DUE TO RESTLESSNESS, TACHYPNEA, TACHYCARDIC. VENT SETTINGS AT END OF SHIFT 12, 400, 5, 40%. DUONEBS ADDED DUE TO INCREASED EXP WHEEZE. MODERATE AMOUNT WHITE THICK SECRETIONS. LEVO TITRATED DOWN FROM 7MCG/KG/MIN AT BEG OF SHIFT TO SB-1. MAG AND K REPLACED. TF RATE INCREASED TO 30ML/HR AT 1700. FC INTACT. PLAN TO SBT AND SEDATION VACATION TOMORROW WITH HOPES OF EXTUBATION.
--- NOTE | 2021-06-30 19:25 | NUR ---
Assumed care. Report received from shaheen YUN. Pt in bed, sedated and ventilated via ETT. Vent settings: AC/VC 12/400/5/40%. OG tube in place, tube feed at goal rate 30 ml/hr. L/femoral central line in place, IV access in R/hand. IV pump settings: Levophed 1 mcg/min, Propofol 15 mcg/kg/min, Precedex 1.4 mcg/kg/hr, LR 10 ml/hr. SWB restraints in place. Temp Henry catheter in place. No acute needs noted at this time, will continue to monitor.
[2021-07-01 04:10] LABS: BASOPHILS ABSOLUTE AUTO 0.01 K/mm3 (0.00-0.23); BASOPHILS PERCENT AUTO 0 % (0-2); EOSINOPHILS PERCENT AUTO 0 % (0-6); Hematocrit 26.6 % (37.0-53.0); IMMATURE GRAN ABSOLUTE AUTO 0.04 K/mm3 (0.00-0.10); IMMATURE GRAN PERCENT AUTO 0 % (0-1); LYMPHOCYTES ABSOLUTE AUTO 0.55 K/mm3 (0.84-5.20); LYMPHOCYTES PERCENT AUTO 6 % (21-46); MONOCYTES ABSOLUTE AUTO 0.39 K/mm3 (0.16-1.47); MONOCYTES PERCENT AUTO 4 % (4-13); Mean Corpuscular HGB 22.9 pg (26.0-34.0); Mean Corpuscular HGB Conc 30.1 g/dL (31.5-36.5); Mean Corpuscular Volume 76 fL (80-100); Mean Platelet Volume 10.6 fL (9.1-12.4); NEUTROPHILS PERCENT AUTO 90 % (41-73); Platelet Count 251 K/mm3 (150-400); RDW Coefficient Variation 16.8 % (11.7-14.2); RDW Standard Deviation 45.5 fL (35.1-46.3); Red Blood Cell Count 3.49 M/mm3 (4.30-5.90); White Blood Cell Count 9.89 K/mm3 (4.00-11.30)
[2021-07-01 04:29] LABS: Anion Gap 5 mmol/L (6-16); Blood Urea Nitrogen 32 mg/dL (8-24); CO2, Blood 34 mmol/L (21-32); Calcium, Blood 8.9 mg/dL (8.5-10.1); Chloride, Blood 102 mmol/L (98-108); Creatinine, Blood 0.94 mg/dL (0.60-1.20); Glomerular Filtration Rate >60 (60-); Glucose, Blood 179 mg/dL (70-99); Potassium, Blood 4.2 mmol/L (3.5-5.5); Sodium, Blood 141 mmol/L (136-145)
--- NOTE | 2021-07-01 06:07 | NUR ---
Shift summary. Pt continues in bed, sedated and ventilated. Vent settings: AC/VC 12/400/5/30%. Tube feed running at goal rate 30 ml/hr, feed and tubing changed this shift. IV pump settings: Levophed on standby, Precedex 1.4 mcg/kg/hr, Propofol 30 mcg/kg/min, LR 10 ml/hr. SWB restraints in place. Temp camacho in place, 900 ml out this shift. See shift assessment for further details. Will continue to monitor and report off to dayshift RN.
--- NOTE | 2021-07-01 07:20 | NUR ---
ASSUMED PT CARE. PROP AT 30; PRECEDEX 1.4; LEVO ON SB. VENT SETTINGS AC 12, 400, 5, 30%. LUNGS CLEAR/DIM. MODERATE AMOUNT OF WHITE THICK SECRETIONS. PT NOT FOLLOWING COMMANDS, EDWARDS. CALM CURRENTLY, BUT YESTERDAY AND PER NOC REPORT PT THRASHES HEAD AND PULLS ON RESTRAINTS WHEN AWAKE/AGITATED. OGT INTACT AND PATENT WITH TF AT GOAL 30ML/HR; FC INTACT AND PATENT. PLAN TO DO SEDATION VACATION AND SBT WHEN MD WARD PRESENT TO DISCUSS TIMING AND POC; PT'S TO BE PRESENT IF EXTUBATING.
--- NOTE | 2021-07-01 09:28 | NUR ---
PT ON SBT AT 0900 VIA MD WARD. TF ON HOLD.
--- NOTE | 2021-07-01 11:53 | NUR ---
PT EXTUBATED TO BIPAP AT APPROX 1125; BIPAP 10/5 30%, TITRATED UP TO 40%. PT'S AND MD WARD IN ROOM.
--- NOTE | 2021-07-01 14:46 | NUR ---
[address] WARD PATIENT INCREASED RESTLESSNESS AND AGITATION, UNCONSOLABLE, MEDICATED WITH ZYPREXA X1, PALLIATIVE CARE NURSE CONSULTED, AT BEDSIDE AGREED FOR COMFORT CARE AND TO NOT RE INTUBATE AGAIN. PATIENT REPOSITIONED, WAITING FOR MORE FAMILY.
--- NOTE | 2021-07-01 15:24 | NUR ---
Met with pt's at bedside. She is currently on the telephone with her daughter in law. I was able to talk to both of them at once, and we discussed the pt's end stage COPD. His Gabriela states it's really hard to see him struggling on bipap and in restraints. She also v/u that reintubation will not improve pt's lung function. She did ask to wait to make further decisions until her daughter in law arrived. Once daughter in law arrived, they made the decision to change the patient's status to comfort care, no intubation. Received order from Dr. Gonzalez for comfort care. Placed orders in the chart, Maria T YUN notified, and family are preparing to make pt comfort care now.
--- NOTE | 2021-07-01 15:29 | NUR ---
PATIENT CHANGED TO COMFORT CARE STATUS, FAMILY AT BEDSIDE, BIPAP REMOVED, NC 2L, MEDICATED WITH ATIVAN AND MORPHINE, NO DISTRESS, WCTM
--- NOTE | 2021-07-01 15:53 | NUR ---
Spiritual care visit conducted. After receiving a request from Palliative Care RN Mili, I visit family. While I am learning about the family dynamics and conducting a life review of pt, Patient's RNs come in and remove Cpap and give medications. There are many calls to different family members who are scrambling to get to the hospital and also more stories are being told. 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 I provide a calming presence, gentle investment counselor and encouragement, anticipatory grief support and prayer. Family voice appreciation and show signs of being comforted. Spiritual care will remain available.
--- NOTE | 2021-07-01 17:43 | NUR ---
COMFORT CARE, FAMILY AT BEDSIDE, EDUCATED ON VISTING HOURS AND ROOM CAPACITY, NONRESPONSIVE TO STIMULUS, SATS 90S ON 2L NC, SBP 110, TEMP 95.3, NO DISTRESS, RESPIRATIONS EVEN AND NON LABORED, PRN ATIVAN AND MORPHINE GIVEN, REPOSITIONED THROUGH OUT THE DAY, WILL RELAY TO PM , WCTM
--- NOTE | 2021-07-01 19:15 | NUR ---
Assumed care. Report received from shaheen RN. Family at bedside, pt on comfort care. Pt resting quietly in bed at this time, no acute needs noted. Family given call light. Will continue to monitor.
--- NOTE | 2021-07-02 06:22 | NUR ---
Shift summary. Pt resting quietly in bed at this time. at bedside. Pt is arousable, follows commands. Stable vital signs. Pt is very interested in home hospice, she would like to have him home for rohit if possible. Will continue to monitor and report off to dayshift RN.
--- NOTE | 2021-07-02 12:25 | NUR ---
Spiritual care visit conducted. Patient is lying in bed and minimally responsive. Patient's spouse, Gabriela, is bedside and tearful. I answer her questions about hospice and help her frame her thinking toward the gift of surrounding him with love at home can be. Gabriela talks at length about the family unit complications and we discuss some pathways of reconciliation and ways to make the end of life moments meaningful. Gabriela bueno has theological questions that I am able to bring insights to given the family's belief system. I provide therapeutic listening and prayer. Gabriela responds well and shows signs of greater peace and increased knowledge of the hospice process. I will continue to remain available to patient and family.
[2021-07-02] MEDS ORDERED: MORP20L SL (16:12)
[2021-07-02] MEDS ORDERED: TRANSDERM-SCOP1 EAC8 TD (16:13)
[2021-07-02] MEDS ORDERED: ATROPINE SULFATE2 M1 SL (16:13)
[2021-07-02] MEDS ORDERED: ALBU2.5V5 INH (16:15)
== END 2021-07-02 17:07 | disposition hospice, home (50) | DRG 208 ==
LOC: ER 05:01 → ERHOLD 07:19 → ICUE 07:19
PROVIDERS: Family Medicine; Internal Medicine Critical Care Medicine; Student in an Organized Health Care Education/Training Program; ADMIT Internal Medicine
PROC: 0BH18EZ Insertion of Endotracheal Airway into Trachea, Via Natural or Artificial Opening Endoscopic (ICD-10-PCS; principal; 2021-06-29)
PROC: 5A1945Z Respiratory Ventilation, 24-96 Consecutive Hours (ICD-10-PCS; 2021-06-29)
PROC: 02HV33Z Insertion of Infusion Device into Superior Vena Cava, Percutaneous Approach (ICD-10-PCS; 2021-06-29)
PROC: 3E043XZ Introduction of Vasopressor into Central Vein, Percutaneous Approach (ICD-10-PCS; 2021-06-29)
PROC: 5A09357 Assistance with Respiratory Ventilation, Less than 24 Consecutive Hours, Continuous Positive Airway Pressure (ICD-10-PCS; 2021-06-29)
DX: J96.21 Acute and chronic respiratory failure with hypoxia (principal); E43 Unspecified severe protein-calorie malnutrition; J44.1 Chronic obstructive pulmonary disease with (acute) exacerbation; R64 Cachexia; E87.2 Acidosis; J96.22 Acute and chronic respiratory failure with hypercapnia; Z51.5 Encounter for palliative care; Z20.822 Contact with and (suspected) exposure to COVID-19; D50.9 Iron deficiency anemia, unspecified; G89.4 Chronic pain syndrome; I50.9 Heart failure, unspecified; I25.10 Atherosclerotic heart disease of native coronary artery without angina pectoris; E87.6 Hypokalemia; E78.5 Hyperlipidemia, unspecified; B19.20 Unspecified viral hepatitis C without hepatic coma; I25.2 Old myocardial infarction; Z87.11 Personal history of peptic ulcer disease; Z87.891 Personal history of nicotine dependence; Z78.1 Physical restraint status; Z88.1 Allergy status to other antibiotic agents; Z79.52 Long term (current) use of systemic steroids; Z79.899 Other long term (current) drug therapy
CPT/HCPCS: 0241U; 31500; 36415; 36430; 36556; 36600; 51702; 71045; 80048; 80053; 81001; 82330; 82607; 82728; 82746; 82803; 82947; 83540; 83550; 83605; 83735; 83880; 84100; 84484; 85025; 86850; 86900; 86901; 86923; 87040; 87070; 87077; 87086; 87147; 87186; 93005; 93010; 93306; 94002; 94003; 94640; 94644; 94660; 94760; 96365; 96366; 96375; 99285-25; A9270; C1751; C9113; J0456; J0692; J0696; J1170; J1650; J2060; J2270; J2704; J2916; J2930; J3010; J3370; J3475; J3480; J7030; J7050; J7060; J7120; P9016